=== PATIENT | male | born 1975 | race Caucasian/White ===

== ENCOUNTER 2020-07-28 13:40 | Emergency (ER) | payer OTHER, SELFPAY ==
[~2020-07-28] VITALS: Ht 177.8 cm; Wt 121.6 kg
[2020-07-28 13:43] VITALS: Ht 177.8 cm; Wt 121.6 kg
[2020-07-28 15:53] VITALS: BP 129/86
== END 2020-07-28 15:53 | disposition home or self-care (01) ==
LOC: ED 13:40
DX: U07.1 COVID-19 (principal); J12.89 Other viral pneumonia; E11.9 Type 2 diabetes mellitus without complications; Z90.49 Acquired absence of other specified parts of digestive tract; Z88.1 Allergy status to other antibiotic agents
CPT/HCPCS: Q0092